=== PATIENT | male | born 1995 | race Caucasian/White ===

== ENCOUNTER → 2019-05-11 14:02 | Outpatient (CLI) | payer OTHER, SELFPAY ==
--- NOTE | 2019-05-11 14:08 | DI.RAD.S_ITS ---
PROCEDURE: XR HAND LT MIN 3V INDICATIONS: puncture wound, r/o fracture or retained FB TECHNIQUE: 3 views of the hand(s) acquired. COMPARISON: Left hand radiographs 02/16/2019. FINDINGS: Bones: No fractures or dislocations. Carpal bones are normally aligned. No suspicious bony lesions. Soft tissues: No suspicious soft tissue calcifications. No radiopaque foreign body. IMPRESSION: No acute osseous abnormality. No radiopaque foreign body. Dictated by: Ozzie Wade M.D. on 05/11/2019 at 14:45 Approved by: Ozzie Wade M.D. on 05/11/2019 at 14:47
== END ==
PROVIDERS: Visit Provider Physician Assistant
DX: S61.432A Puncture wound without foreign body of left hand, initial encounter (principal); X58.XXXA Exposure to other specified factors, initial encounter
CPT/HCPCS: 73130

== ENCOUNTER 2019-10-24 20:24 | Emergency (ER) | payer OTHER, SELFPAY ==
--- NOTE | 2019-10-24 20:28 | ED.HA ---
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 Patient denies fevers, he denies vision changes, he denies any numbness tingling or weakness, no neck pain. No chest pain, no shortness of breath, no cold cough or congestive symptoms. He denies any nausea or vomiting. He denies any GI or urinary symptoms. He states he gets headaches occasionally. He did take a Tylenol for it. He presents today because he was at work told him that he wanted to leave because he had a headache and he was told that he needed to be evaluated if he had any symptoms for coronavirus 19. He states that they did not tell he had any tested for it but just evaluated to be allowed to return to work. Patient denies any medical problems otherwise. He states he does get headaches and that this does feel similar to prior headaches. Related Data Allergies Allergy/AdvReac Type Severity Reaction Status Date / Time No Known Drug Allergies Allergy Unverified 05/11/19 13:13 Review of Systems Review of Systems ROS Unobtainable: All systems reviewed & are unremarkable except as noted in HPI and below Patient History Social History Smoking Status: Former smoker Smoking Status: Former smoker Exam Narrative Exam Narrative: GEN: well nourished, well appearing male, alert and oriented x 3, patient appears to be in mild distress. HEENT: Atraumatic, pupils are equal round reactive to light, extraocular movements are intact, nares are clear. HEART: Regular rate and rhythm without murmur, clicks, rubs. LUNGS:Lungs clear to auscultation, no wheezes, rales, crackles, chest moves symmetrically ABD:bowel sounds normal, soft, non-tender, no guarding, rebound, rigidity, no masses noted, no hepatosplenomegaly :No CVA tenderness MSCL: Non-tender, no muscle atrophy, muscles strength 5/5 upper and lower extremities, full range of motion, normal gait NEURO:CN 2-12 intact, sensation normal. SKIN: Rash, erythema or skin changes. Initial Vital Signs Initial Vital Signs: Vital Signs Temperature 98.4 F 10/24/19 20:30 Pulse Rate 78 10/24/19 20:30 Respiratory Rate 15 10/24/19 20:30 Blood Pressure 121/74 10/24/19 20:30 Pulse Oximetry 100 10/24/19 20:30 Course Vital Signs Vital signs: Vital Signs - 8 hr 10/24/19 20:30 Temperature 98.4 F Pulse Rate 78 Respiratory Rate 15 Blood Pressure 121/74 Pulse Oximetry 100 Discharge Plan Departure Patient Disposition: Home Clinical Impression: Headache Qualifiers: Headache type: unspecified Discharge Date/Time: 10/24/19 20:49 Instructions: DI for Headache Activity Restrictions/Additional Instructions: If you feel you need testing for coronavirus 19 the [facility] has a respiratory clinic at : [address] [place] [address], [place] [address] HOURS Every day, 8 a.m. to 5 p.m. PHONE Please call first before going to clinic. You are not guarantee to be tested for coronavirus 19. If you are having severe headaches, fevers greater 100.4 F, persistent vomiting, vision changes, new weakness numbness or tingling, chest pain, severe shortness of breath or other new or concerning symptoms return to the ED. Stand Alone Forms: Work Release Note
[2019-10-24 20:30] VITALS: BP 121/74; PULSE 78; RESP 15; TEMP 36.9; O2SAT 100; BMI 20.4
== END 2019-10-24 20:49 | disposition home or self-care (01) ==
PROVIDERS: Emergency Provider Emergency Medicine
DX: R51 Headache (principal)
CPT/HCPCS: 99281

== ENCOUNTER → 2021-04-30 12:32 | Outpatient (CLI) | payer OTHER, SELFPAY ==
[2021-04-30 14:48] LABS: COVID19 -Nasal RAPID POSITIVE (Negative)
== END ==
PROVIDERS: Visit Provider Physician Assistant
DX: U07.1 COVID-19 (principal)
CPT/HCPCS: 87635